=== PATIENT | female | born 1940 | race Caucasian/White ===

== ENCOUNTER 2019-02-19 09:15 | Outpatient (CLI) | payer OTHER ==
[~2019-02-19 09:15] MED LIST: BACLOFEN PO; CEFADROXIL500 MG PO; CENTRUM ADULTS1 EACH PO; GABAPENTIN800 MG PO; LOTREL 5-20 MG1 CAP PO; LUMIGAN2.5 M1 OP; PERCOCET 5-3251 EACH PO; PLAVIX75 MG PO; PREVACID30 MG PO; XARELTO10 MG PO; ZOCOR40 MG PO; [UNRECOGNIZED DRUG - OTHER]
== END 2019-02-19 09:22 | disposition home or self-care (01) ==
LOC: RX STUDY 09:15
DX: R13.19 Other dysphagia (principal)